=== PATIENT | male | born 1985 | race Caucasian/White ===

== ENCOUNTER 2021-02-02 12:26 | Day surgery (SDC) | payer OTHER ==
[~2021-02-02 12:26] MED LIST: FLOMAX 0.4 MG0.4 MG PO; FLOMAX0.4 MG PO; NORCO 5-325 TA1 EACH PO; ONDANSETRON ODT4 MG PO
[2021-02-02 13:19] LABS: BILIRUBIN NEGATIVE (NEGATIVE); BLOOD NEGATIVE Ery/uL (NEGATIVE); CLARITY CLEAR (CLEAR); COLOR YELLOW (YELLOW); GLUCOSE (U) NORMAL (NORMAL); LEUKOCYTES NEGATIVE Leu/uL (NEGATIVE); NITRITE NEGATIVE (NEGATIVE); PROTEIN NEGATIVE (NEGATIVE); SPECIFIC GRAVITY 1.025 (1.001-1.030); UROBILINOGEN 0.2 mg/dL (0.2-1.0)
[2021-02-02 13:36] LABS: BASOPHIL 0.8 % (0-2); EOSINOPHIL 5.7 % (0-5); HCT 43.7 % (42.0-52.0); HGB 14.9 g/dl (13.2-18.0); LYMPHOCYTE 39.7 % (15-48); MCH 29.3 pg (25.0-31.0); MCHC 34.1 g/dL (32.0-36.0); MONOCYTE 7.7 % (0-12); MPV 10.7 fL (6.0-9.5); NEUTROPHIL 45.6 % (41-80); NRBC 0; PLT 233 K/uL (150-400); RBC 5.08 M/uL (4.70-6.00); RDW 11.8 % (11.5-14.0); WBC 8.6 K/uL (4.0-10.5)
[2021-02-02 14:05] LABS: BUN/CREAT RATIO (CALC) 10.6 RATIO; CREATININE 1.13 mg/dL (0.67-1.17); POTASSIUM 4.1 mmol/L (3.5-5.1)
[2021-02-02] MEDS ORDERED: MOTRIN600 MG PO ×2 (19:32→21:00)
[2021-02-02] MEDS ORDERED: COLACE100 MG PO ×2 (19:32→21:00)
[2021-02-02] MEDS ORDERED: OXY-IR 5MG5 MG PO ×2 (19:32→21:00)
[2021-02-02] MEDS ORDERED: ACETAMINOPHEN500 M1 PO ×2 (19:32→21:00)
== END 2021-02-02 21:50 | disposition home or self-care (01) ==
LOC: FER 12:26 → FAS 17:02 → FMS 19:18 → FAS 21:50 → FMS 21:50
PROVIDERS: Nurse Practitioner Family
DX: K35.80 Unspecified acute appendicitis (principal); Z88.2 Allergy status to sulfonamides; Z20.822 Contact with and (suspected) exposure to COVID-19
CPT/HCPCS: 36415; 80048; 81003; 85025; J1100; J1170; J1644; J1885; J2250; J2405; J2543; J2704; J2710; J3010; J7030; J7120; Q9967; U0002

== ENCOUNTER 2022-02-05 07:02 | Emergency (ER) | payer OTHER ==
[~2022-02-05 07:02] MED LIST changes: +ACETAMINOPHEN500 M1 PO; +COLACE100 MG PO; +MOTRIN600 MG PO; +OXY-IR 5MG5 MG PO
[2022-02-05 07:47] LABS: BASOPHIL 0.6 % (0-2); BILIRUBIN 1+ mg/dL (NEGATIVE); BLOOD 3+ Ery/uL (NEGATIVE); CLARITY CLEAR (CLEAR); COLOR YELLOW (YELLOW); EOSINOPHIL 4.3 % (0-5); GLUCOSE (U) NORMAL (NORMAL); HCT 42.8 % (42.0-52.0); LEUKOCYTES NEGATIVE Leu/uL (NEGATIVE); LYMPHOCYTE 32.6 % (15-48); MCH 30.6 pg (25.0-31.0); MCV 87.3 fL (78.0-100.0); MONOCYTE 8.4 % (0-12); MPV 10.8 fL (6.0-9.5); NEUTROPHIL 53.9 % (41-80); NITRITE POSITIVE (NEGATIVE); NRBC 0; PLT 219 K/uL (150-400); PROTEIN 1+ mg/dL (NEGATIVE); RDW 11.4 % (11.5-14.0); SPECIFIC GRAVITY >=1.030 (1.001-1.030); WBC 9.3 K/uL (4.0-10.5); pH 5.5 (5.0-9.0)
[2022-02-05 07:55] LABS: URINARY RBC TNTC
[2022-02-05 08:01] LABS: BUN/CREAT RATIO (CALC) 9.9 RATIO; CREATININE 1.21 mg/dL (0.67-1.17); POTASSIUM 3.7 mmol/L (3.5-5.1)
[2022-02-05] MEDS ORDERED: NORCO 5/3251 EACH PO (09:22)
[2022-02-05] MEDS ORDERED: FLOMAX 0.4 MG0.4 MG PO (09:22)
== END 2022-02-05 09:44 | disposition home or self-care (01) ==
LOC: FER 07:02
PROVIDERS: Emergency Medicine
DX: N13.2 Hydronephrosis with renal and ureteral calculous obstruction (principal)
CPT/HCPCS: 36415; 80048; 81001; 85025; J1170; J1885; J2405